=== PATIENT | female | born 1965 | race Caucasian/White ===

== ENCOUNTER 2017-01-23 14:08 | Emergency (ER) | payer MEDICARE ==
--- NOTE | ~2017-01-23 | CR169 ---
[facility]. [facility] A Service of [facility] & [facility] / [facility] RADIOLOGY TEXT RESULTS PATIENT: PIERRE CORTES LOCATION: SED : 67 UNIT #: [id number] AGE: [address]: Obed Colon MD SEX: F ORDER DR: [id number] [place] [id number] E MR#: [id number] Acc #: [id number] NAME: PIERRE CORTES : 1965 SEX: F STUDY DATE/TIME: 01/23/2017 13:55 UNIT: SED ROOM: STUDY DESCRIPTION: CR Knee 2 Views Lt Attending Physician: Obed Colon M.D. Ordering Physician: Obed Colon M.D. Primary Care Physician: Geovanny Ahmadi M.D. MEDICAL IMAGING REPORT This report is preliminary unless electronic signature is present. EXAM Left knee 2 views 01/23/2017 INDICATIONS 51-year-old female, left knee pain for 10 days. No known injury. COMPARISON STUDIES No comparisons. FINDINGS There is a small knee joint effusion. There is no fracture or dislocation. The joint spaces are preserved. IMPRESSION Small knee joint effusion. Otherwise unremarkable. Dictated by... Jesus Alberto Gandhi M.D. THIS IS AN ELECTRONICALLY VERIFIED REPORT Jesus Alberto Gandhi M.D. at 01/23/2017 4:59 PM TRA/taina TD: 01/23/2017 16:29 JOB #: [id number] MEDICAL IMAGING REPORT
[~2017-01-23 14:08] MED LIST: ALBUTEROL17 GM INH; ALPRAZOLAM PO; CELEBREX PO; DARVOCET-N 1001 TAB PO; DETROL LA PO; DETROL PO; DICLOFENAC PO; EFFEXOR PO; EFFEXOR XR PO; KLONOPIN PO; KLONOPIN1 MG PO; LAMICTAL100 MG PO; LISINOPRIL-HCTZ1 T19; LORTAB; LORTAB 10-3251 EACH PO; MUCINEX DM1 TAB.SR . PO; NORVASC PO; NORVASC10 MG PO; PERCOCET PO; PERCOCET10 PO; PHENERGAN/CODEIN5 ML DOB; PREDNISONE PO; PROVERA PO; PROVERA10 MG PO; PROZAC10 MG PO; PT UNSURE OF MEDS; RONDEC-DM ORAL30 ML PO; SKELAXIN PO; SOMA; SOMA PO; VISTARIL PO; VOLTAREN75 MG PO; ZITHROMAX PO; ZOLOFT PO
== END 2017-01-23 14:49 | disposition home or self-care (01) ==
LOC: SED 14:08
DX: M25.462 Effusion, left knee (principal); I10 Essential (primary) hypertension; F17.200 Nicotine dependence, unspecified, uncomplicated; F41.9 Anxiety disorder, unspecified; Z98.890 Other specified postprocedural states
CPT/HCPCS: 29530; 73560; 99283

== ENCOUNTER → 2017-02-10 | Outpatient (CLI) | payer MEDICARE ==
--- NOTE | ~2017-02-10 | MY11 ---
[facility] A Service of [facility] RADIOLOGY TEXT RESULTS PATIENT: PIERRE CORTES LOCATION: [facility] : 67 UNIT #: [id number] AGE: [address]: SHALINI HENDRIX SEX: F ORDER DR: [id number] [address] [address] [id number] O MR#: [id number] Acc #: [id number] NAME: PIERRE CORTES : 1965 SEX: F STUDY DATE/TIME: 02/10/2017 14:07 UNIT: [facility] ROOM: STUDY DESCRIPTION: MY Mammogram Screening Dig [place] Attending Physician: Shalini Hendrix Aprn Referring Physician: Shalini Hendrix Aprn Ordering Physician: Shalini Hendrix Aprn Primary Care Physician: Shalini Hendrix Aprn MEDICAL IMAGING REPORT This report is preliminary unless electronic signature is present. EXAM Digital screening mammogram. DATE OF EXAM 02/10/2017 [facility]. HISTORY 51-year-old woman, no risk elevation. Annual screen. COMPARISON 06/09/2009 FINDINGS Digital imaging of each breast was completed utilizing a two-view examination of each breast in craniocaudal and mediolateral-oblique projections. Review and interpretation of digital mammograms include a second review in conjunction with FDA-approved CAD device. There is a normal parenchymal presentation bilaterally consistent with the patient's age. There are no breast masses imaged and no parenchymal asymmetry is visualized. There are no suspicious microcalcifications and I see no focal architectural disturbance. IMPRESSION Negative screening digital mammogram. One-year followup recommended. Patients over the age of 40 are entered into a reminder system with target due date for the next mammogram. A result letter will also be sent to the patient. BIRADS: 1 Negative. [facility] A Service [facility] RADIOLOGY TEXT RESULTS PATIENT: PIERRE CORTES LOCATION: [facility] : 67 UNIT #: [id number] AGE: [address]: SHALINI HENDRIX SEX: F ORDER DR: ADDENDUM Breast parenchyma is fatty replaced. Dictated by... Brandin Torres M.D. THIS IS AN ELECTRONICALLY VERIFIED REPORT Brandin Torres M.D. at 02/13/2017 8:06 AM IRAJ/ellen TD: 02/10/2017 15:40 JOB #: [id number] MEDICAL IMAGING REPORT Page 1 of 1
--- NOTE | ~2017-02-10 | MR103 ---
[facility]. [facility] A Service of [facility] RADIOLOGY TEXT RESULTS PATIENT: PIERRE CORTES LOCATION: [facility] : 67 UNIT #: [id number] AGE: [address]: SHALINI HENDRIX SEX: F ORDER DR: [id number] [address] [address] [id number] O MR#: [id number] Acc #: [id number] NAME: PIERRE CORTES : 1965 SEX: F STUDY DATE/TIME: 02/10/2017 14:04 UNIT: [facility] ROOM: STUDY DESCRIPTION: MR Knee Wo Contrast Lt Attending Physician: Shalini Hendrix Aprn Referring Physician: Shalini Hendrix Aprn Ordering Physician: Shalini Hendrix Aprn Primary Care Physician: Shalini Hendrix Aprn MRI CENTER REPORT This report is preliminary unless electronic signature is present. EXAM Left knee MRI without contrast 02/10/2017 HISTORY 51-year-old female with left knee pain and swelling for 4 weeks. No specific injury. No prior left knee surgery. COMPARISON Left knee x-rays 01/23/2017 TECHNIQUE Routine unenhanced multiplanar, multisequence high field MR imaging of the left knee was performed. FINDINGS There is a vertical radial tear involving the posterior horn and posterior root attachment of the medial meniscus. This results in partial extrusion of the body segment from the medial joint line. Lateral meniscus is intact. Cruciate and collateral ligaments are intact. Extensor mechanism intact. There is a ehyttrzd-qm-exxvn joint effusion. There are two loose bodies located posterior to the tibial attachment of the PCL measuring 7 mm and 6 mm respectively. There is a small popliteal cyst. There is full-thickness articular cartilage loss throughout the medial patellar facet and median ridge of the patella. 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 Lateral compartment articular cartilage is intact. There is extensive full-thickness articular cartilage loss along the weightbearing surfaces of the medial femoral condyle and medial tibial plateau. There is a small developing subchondral insufficiency fracture along the far medial weightbearing [facility] A Service of [facility] & [facility] RADIOLOGY TEXT RESULTS PATIENT: PIERRE CORTES LOCATION: [facility] : 67 UNIT #: [id number] AGE: [address]: SHALINI HENDRIX SEX: F ORDER DR: surface of the medial tibial plateau. There is moderate marrow edema in the medial tibial plateau and mild subchondral marrow edema in the medial femoral condyle. The remainder the bone marrow signal is within expected limits. Visualized musculature is unremarkable. IMPRESSION 1. Vertical radial tear involving the posterior horn and posterior root attachment of the medial meniscus, resulting in partial extrusion of the body segment from the medial joint line. 2. No acute ligament injury. 3. High-grade chondromalacia throughout the medial compartment with a developing subchondral insufficiency fracture along the medial weightbearing surface of the medial tibial plateau. 4. High-grade chondromalacia of the patellofemoral joint, detailed above. 5. Kgfaobtj-qi-gjzlm joint effusion with 2 loose bodies located posterior to the tibial attachment of the PCL, measuring 7 mm and 6 mm respectively. Dictated by... Ant Yanez M.D. THIS IS AN ELECTRONICALLY VERIFIED REPORT Ant Yanez M.D. at 02/13/2017 4:36 PM Brigitte TD: 02/13/2017 14:06 JOB #: [id number] MRI CENTER REPORT Page 1 of 1
== END | disposition home or self-care (01) ==
LOC: SMAM 12:04
DX: Z12.31 Encounter for screening mammogram for malignant neoplasm of breast (principal); M25.562 Pain in left knee; M23.222 Derangement of posterior horn of medial meniscus due to old tear or injury, left knee; M22.42 Chondromalacia patellae, left knee; M84.48XA Pathological fracture, other site, initial encounter for fracture; M25.462 Effusion, left knee; M23.42 Loose body in knee, left knee
CPT/HCPCS: 73721; G0202